=== PATIENT | male | born 1995 | race Caucasian/White ===

== ENCOUNTER 2017-05-09 15:13 | Emergency (ER) | payer OTHER ==
[~2017-05-09] VITALS: Ht 175.3 cm; Wt 96.0 kg
[~2017-05-09 15:13] MED LIST: [UNRECOGNIZED DRUG - REMARK]
[2017-05-09 15:15] VITALS: Ht 175.3 cm; Wt 96.0 kg
[2017-05-09] MEDS ORDERED: KETOROLAC 30 MG INJ IV STA (15:27)
[2017-05-09] MEDS ORDERED: SOD CHLORIDE 0.9% 1,000 ML IV STA (15:27)
[2017-05-09] MEDS ORDERED: ONDANSETRON 4 MG INJ IV STA (15:27)
[2017-05-09 16:09] LABS: BASOPHIL # 0.1 10^3/ul (0.0-0.1); BASOPHILS % 0.5 % (0.0-2.0); EOSINOPHILS # 0.1 10^3/ul (0.0-0.5); EOSINOPHILS % 0.4 % (0.0-7.0); HEMATOCRIT 47.6 % (42.0-52.0); HEMOGLOBIN 16.8 g/dl (14.0-18.0); LYMPHOCYTES % 13.4 % (15.0-51.0); MEAN CORPUSCULAR HEMOGLOBIN 30.3 pg (29.0-33.0); MEAN CORPUSCULAR HGB CONC 35.3 g/dl (32.0-37.0); MEAN CORPUSCULAR VOLUME 85.9 fl (82.0-101.0); MEAN PLATELET VOLUME 9.5 fl (7.4-10.4); MONOCYTE # 0.6 10^3/ul (0.3-0.9); MONOCYTES % 4.2 % (0.0-11.0); NEUTROPHIL # 12.1 10^3/ul (1.6-7.5); NEUTROPHILS % 81.1 % (39.0-77.0); PLATELET COUNT 332 10^3/UL (140-415); RED BLOOD COUNT 5.54 10^6/ul (4.70-6.10); RED CELL DISTRIBUTION WIDTH 11.9 % (11.5-14.5)
[2017-05-09 16:15] LABS: ADD UMIC YES; UR ASCORBIC ACID NEGATIVE (NEGATIVE); UR BILIRUBIN (Dip) NEGATIVE (NEGATIVE); UR BLOOD (Dip) 3+ mg/dL (NEGATIVE); UR CLARITY CLEAR (CLEAR); UR COLOR YELLOW (YELLOW); UR GLUCOSE (Dip) NEGATIVE (NEGATIVE); UR KETONES (Dip) TRACE mg/dL (NEGATIVE); UR LEUKOCYTE ESTERASE (Dip) NEGATIVE Leu/ul (NEGATIVE); UR MUCUS MANY /HPF (NONE SEEN); UR NITRITE (Dip) NEGATIVE (NEGATIVE); UR RBC 45 /HPF (0-5); UR SPECIFIC GRAVITY (Dip) 1.033 (1.003-1.030); UR TOTAL PROTEIN (Dip) 1+ mg/dl (NEGATIVE); UR UROBILINOGEN (Dip) 1+ mg/dL (NEGATIVE)
--- NOTE | 2017-05-09 16:28 | RADRPT ---
PROCEDURE: CT Abdomen and Pelvis without contrast. CLINICAL INDICATION: Abdominal pain TECHNIQUE: CT scan of the abdomen and pelvis without contrast was performed on a multidetector hig h-resolution CT scanner. The patient was scanned without intravenous contrast. Coronal and sagittal reformatted images were obtained from the axial source images. Images were reviewed on a high-resol [employer] PACS workstation. The total exam CTDI equals 17.5 mGy and the total exam DLP equals 1053 mGy-c m. One or more of the following dose reduction techniques were utilized: 1.) Automated exposure control 2.) Adjustment of the mA +/- kV according to patient's size 3.) Use of iterative reconstruction technique. COMPARISON: None FINDINGS: Visualized lung bases clear. Fatty liver. The gallbladder appears unremarkable. No intrahepatic arch hepatic biliary ductal dilat ation. Systemic, spleen, pancreas and bilateral adrenal glands appear unremarkable. Unremarkable noncontrast appearance of bilateral kidneys. No evidence of nephrolithiasis or hydronep hrosis. No evidence of hydroureter. Unremarkable noncontrast appearance of the abdominal aorta and inferior vena cava. The small bowel and colon appear unremarkable. The appendix is visualized and appears within normal limits. No intra-abdominal or intrapelvic lymphadenopathy. Scattered sub centimeter mesenteric and retroperi toneal lymph nodes. The regional skeleton is intact. IMPRESSION: Fatty liver. Otherwise, unremarkable CT scan of the abdomen and pelvis. RPTAT: QQ Physician Paxton Date Time Electronically viewed and signed by Physician Paxton on 05/09/2017 16:27 /
[2017-05-09 16:31] LABS: ALBUMIN 4.7 g/dl (3.3-4.9); ALBUMIN/GLOBULIN RATIO 1.42; BILIRUBIN,INDIRECT 1.1 mg/dl (0-1.1); BILIRUBIN,TOTAL 1.1 mg/dl (0.2-1.3); CALCIUM 9.7 mg/dl (8.4-10.2); CREATININE 1.13 mg/dl (0.61-1.24); POTASSIUM 4.2 mmol/L (3.5-5.1)
[2017-05-09] MEDS ORDERED: NAPR-260 PO (16:46)
[2017-05-09] MEDS ORDERED: morphine 4 MG/ML VIAL IV STA (17:27)
--- NOTE | 2017-05-09 19:10 | ERD ---
ER Documentation Chief Complaint Chief Complaint LLQ PAIN AND NAUSEA STARTED 1 1/2 HOUR AGO HPI 21-year-old male complaining of left lower quadrant pain 2 hours. Is described as sharp in nature. Happened a few months ago but resolved spontaneously. Pain is been constant over the last 2 hours. Took ibuprofen with mild nausea but no vomiting. Patient denies any hematuria. He has urinary urgency and feeling of needing to urinate. Denies back pain. Denies medical problems. NKDA. Surgical history: Denies. Social history: Denies ROS All systems reviewed and are negative except as per history of present illness. Medications Home Meds Active Scripts Naproxen* (Naprosyn*) 500 Mg Tablet, 500 MG PO BID Y for PAIN AND/OR INFLAMMATION, #30 TAB Prov:DERIC BURKETT PA-C 05/09/17 Reported Medications [Antiotics] No Conflict Check 03/14/13 Allergies Allergies: Coded Allergies: No Known Allergy (Unverified , 03/14/13) PMhx/Soc Medical and Surgical Hx: pt denies Medical Hx, pt denies Surgical Hx History of Surgery: No Anesthesia Reaction: No Hx Neurological Disorder: No Hx Respiratory Disorders: No Hx Cardiac Disorders: No Hx Psychiatric Problems: No Hx Miscellaneous Medical Probl: Yes (lower back cyst) Hx Alcohol Use: Yes Hx Substance Use: Yes Hx Tobacco Use: No Smoking Status: Never smoker Physical Exam Vitals Vital Signs Date Time Temp Pulse Resp B/P Pulse Ox O2 Delivery O2 Flow Rate FiO2 05/09/17 15:15 97.6 74 19 139/98 100 Physical Exam GENERAL: The patient is well-appearing, well-nourished, in no acute distress HEENT: Atraumatic. Conjunctivae are pink. Pupils equal, round, and reactive to light. There is no scleral icterus. Tympanic membranes clear bilaterally. Oropharynx clear. No nystagmus or photophobia. NECK: C-spine is soft and supple. There is no meningismus. There is no cervical lymphadenopathy. CHEST: Clear to auscultation bilaterally. There are no rales, wheezes or rhonchi. HEART: Regular rate and rhythm. No murmurs, clicks, rubs or gallops. No S3 or S4. ABDOMEN: Left lower quadrant pain nonreproducible on palpation. Normoactive bowel sounds. No distention. No organomegaly peer BACK: No midline or flank tenderness. Result Diagram: 05/09/17 1600 05/09/17 1600 Results 24 hrs Laboratory Tests Test 05/09/17 16:00 White Blood Count 15.010^3/ul Red Blood Count 5.5410^6/ul Hemoglobin 16.8g/dl Hematocrit 47.6% Mean Corpuscular Volume 85.9fl Mean Corpuscular Hemoglobin 30.3pg Mean Corpuscular Hemoglobin Concent 35.3g/dl Red Cell Distribution Width 11.9% Platelet Count 06091^3/UL Mean Platelet Volume 9.5fl Neutrophils % 81.1% Lymphocytes % 13.4% Monocytes % 4.2% Eosinophils % 0.4% Basophils % 0.5% Nucleated Red Blood Cells % 0.0/100WBC Neutrophils # 12.110^3/ul Lymphocytes # 2.010^3/ul Monocytes # 0.610^3/ul Eosinophils # 0.110^3/ul Basophils # 0.110^3/ul Nucleated Red Blood Cells # 0.010^3/ul Urine Color YELLOW Urine Clarity CLEAR Urine pH 5.0 Urine Specific [place] 1.033 Urine Ketones TRACEmg/dL Urine Nitrite NEGATIVEmg/dL Urine Bilirubin NEGATIVEmg/dL Urine Urobilinogen 1+mg/dL Urine Leukocyte Esterase NEGATIVELeu/ul Urine Microscopic RBC 45/HPF Urine Microscopic WBC 1/HPF Urine Mucus MANY/HPF Urine Hemoglobin 3+mg/dL Urine Glucose NEGATIVEmg/dL Urine Total Protein 1+mg/dl Sodium Level 144mmol/L Potassium Level 4.2mmol/L Chloride Level 104mmol/L Carbon Dioxide Level 27mmol/L Anion Gap 17 Blood Urea Nitrogen 11mg/dl Creatinine 1.13mg/dl Glucose Level 126mg/dl Calcium Level 9.7mg/dl Total Bilirubin 1.1mg/dl Direct Bilirubin 0.00mg/dl Indirect Bilirubin 1.1mg/dl Aspartate Amino Transf (AST/SGOT) 40IU/L Alanine Aminotransferase (ALT/SGPT) 73IU/L Alkaline Phosphatase 83IU/L Total Protein 8.0g/dl Albumin 4.7g/dl Globulin 3.30g/dl Albumin/Globulin Ratio 1.42 Lipase 41U/L Current Medications Medications (Trade) Dose Ordered Sig/Piedad Route PRN Reason Start Time Stop Time Status Last Admin Dose Admin Sodium Chloride (NS) 1,000 ml @ 1,000 mls/hr Q1H STAT IV 05/09/17 15:27 05/09/17 16:26 DC 05/09/17 16:10 Ondansetron HCl (Zofran Inj) 4 mg ONCE STAT IV 05/09/17 15:27 05/09/17 15:29 DC 05/09/17 16:10 Ketorolac Tromethamine (Toradol) 30 mg ONCE STAT IV 05/09/17 15:27 05/09/17 15:29 DC 05/09/17 16:10 Morphine Sulfate (morphine) 4 mg ONCE STAT IV 05/09/17 17:27 05/09/17 17:28 DC 05/09/17 17:32 Procedures/MDM DIAGNOSTIC IMAGING REPORT Patient: BHUMI HONG : 1995 Age: 21 Sex: M MR #: [id number] DOS: 05/09/17 1527 Ordering MD: HELLEN BURKETT PA-C Location: [facility] Room/Bed: PROCEDURE: CT Abdomen and Pelvis without contrast. CLINICAL INDICATION: Abdominal pain TECHNIQUE: CT scan of the abdomen and pelvis without contrast was performed on a multidetector high-resolution CT scanner. The patient was scanned without intravenous contrast. Coronal and sagittal reformatted images were obtained from the axial source images. Images were reviewed on a high-resolution PACS workstation. The total exam CTDI equals 17.5 mGy and the total exam DLP equals 1053 mGy-cm. One or more of the following dose reduction techniques were utilized: 1.) Automated exposure control 2.) Adjustment of the mA +/- kV according to patient's size 3.) Use of iterative reconstruction technique. COMPARISON: None FINDINGS: Visualized lung bases clear. Fatty liver. The gallbladder appears unremarkable. No intrahepatic arch hepatic biliary ductal dilatation. Systemic, spleen, pancreas and bilateral adrenal glands appear unremarkable. Unremarkable noncontrast appearance of bilateral kidneys. No evidence of nephrolithiasis or hydronephrosis. No evidence of hydroureter. Unremarkable noncontrast appearance of the abdominal aorta and inferior vena cava. The small bowel and colon appear unremarkable. The appendix is visualized and appears within normal limits. No intra-abdominal or intrapelvic lymphadenopathy. Scattered sub centimeter mesenteric and retroperitoneal lymph nodes. The regional skeleton is intact. IMPRESSION: Fatty liver. Otherwise, unremarkable CT scan of the abdomen and pelvis. ER course: IV Toradol, Zofran, and morphine given in ED. Patient's pain well controlled on reevaluation. MDM: 21-year-old male complaining of left lower quadrant pain. CT scan is within normal limits. Patient does have blood noted on urinalysis. Patient likely passed stone but is not seen on CT scan. I have low suspicion for abnormalities or emergencies. Patient is not complaining of penile or testicular pain. I have low suspicion for acute abdominal emergency. Patient' s CT scan is within normal limits. It is discharged with strict ER precautions and told to follow-up with primary care within 1-2 days for close evaluation. Patient is told symptoms change or worsen to return to the emergency room. All questions answered at discharge Departure Diagnosis: Primary Impression: Abdominal pain Condition: Stable Patient Instructions: Abdominal Pain Additional Instructions: FOLLOW UP WITH YOUR PRIMARY CARE PHYSICIAN TOMORROW.Return to this facility if you are not improving as expected. DERIC BURKETT PA-C May 09, 2017 19:10
== END 2017-05-09 17:38 | disposition home or self-care (01) ==
LOC: FTE 15:13
DX: R10.32 Left lower quadrant pain (principal); R11.0 Nausea
CPT/HCPCS: 74176; 80053; 81001; 83690; 85025; J1885; J2270; J2405; J7030; 36415; 96374; 96375